=== PATIENT | female | born 1945 | race Caucasian/White ===

== ENCOUNTER 2022-10-09 11:21 | Emergency (ER) | payer MEDICARE, BC ==
[~2022-10-09] VITALS: Ht 172.7 cm; Wt 77.3 kg
[2022-10-09 11:31] VITALS: BP 130/55; PULSE 67; TEMP 97.6; O2SAT 99
[2022-10-09] MEDS ORDERED: LIDOcaine 1% 30ml preserv. free vial SQ STA (12:14)
[2022-10-09] MEDS ORDERED: TETanus/Pertussis (Acell)/Diphther VAC/PF (Tdap-Adult) 0.5ml syringe IMVAC ONE (12:20)
[2022-10-09 12:57] VITALS: RESP 17
[2022-10-09] MEDS ORDERED: bacitracin 15gm ointment TP ONE (14:00)
[2022-10-09] MEDS ORDERED: NAPR-56 PO (14:10)
[2022-10-09] MEDS ORDERED: CEPH-585 PO (14:10)
== END 2022-10-09 14:17 | disposition home or self-care (01) ==
LOC: ER 11:21
DX: S61.411A Laceration without foreign body of right hand, initial encounter (principal); Z88.2 Allergy status to sulfonamides; W01.0XXA Fall on same level from slipping, tripping and stumbling without subsequent striking against object, initial encounter; Y93.89 Activity, other specified; Y92.89 Other specified places as the place of occurrence of the external cause; Y99.8 Other external cause status
CPT/HCPCS: 12002; 90471; 90715; 99284; J7030; A6258; A6449